=== PATIENT | female | born 2000 | race Hispanic/Latino ===

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

== ENCOUNTER 2019-02-15 01:18 | Emergency (ER) | payer BC ==
--- OUTSIDE RECORDS SUMMARY | 2019-02-15 01:20 | XMS REPORT ---
:2000 Author Organization e[employer] Care Team Providers Name Role Phone Tae Carpio Provider Role Unavailable Allergies, Adverse Reactions, Alerts Substance Reaction Event Type N.K.D.A. Info Not Available Non Drug Allergy Problems Problem Type Condition Code Onset Dates Condition Status Problem Early stage of Z34.90 Active Problem Amenorrhea N91.2 Active Assessment Fatigue, unspecified type R53.83 Active Assessment Nausea/vomiting in O21.9 Active Assessment Positive urine test Z32.01 Active Medications No Known Medications Results Name Result Date Reference Range Unit Abnormality Flag TEST URINE ----RESULTS POSITIVE [id number] Summary Purpose Archetype Mediainical[facility] Submission
--- OUTSIDE RECORDS SUMMARY | 2019-02-15 01:20 | XMS REPORT ---
:2000 Author Organization [employer] Care Team Providers Name Role Phone Jerry Chavez Provider Role Unavailable Allergies, Adverse Reactions, Alerts Substance Reaction Event Type N.K.D.A. Info Not Available Non Drug Allergy Problems Problem Type Condition Code Onset Dates Condition Status Problem Early stage of Z34.90 Active Problem Amenorrhea N91.2 Active Assessment Amenorrhea N91.2 Active Assessment Early stage of Z34.90 Active Medications No Known Medications Results No Known Results Summary Purpose eClinicalWorks Submission
--- OUTSIDE RECORDS SUMMARY | 2019-02-15 01:20 | XMS REPORT ---
:2000 Author Organization [employer] Care Team Providers Name Role Phone Jerry Chavez Provider Role Unavailable Allergies, Adverse Reactions, Alerts Substance Reaction Event Type N.K.D.A. Info Not Available Non Drug Allergy Problems Problem Type Condition Code Onset Dates Condition Status Assessment Other specified bacterial agents B96.89 Active as the cause of diseases classified elsewhere Problem Early stage of Z34.90 Active Problem Amenorrhea N91.2 Active Assessment Encounter to determine O36.80X0 Active viability of , single or unspecified fetus Assessment Acute vaginitis N76.0 Active Assessment Amenorrhea N91.2 Active Assessment Encounter for supervision of Z34.91 Active low-risk in first trimester Medications No Known Medications Results Name Result Date Reference Range Unit Abnormality Flag URINALYSIS AUTO W/O SCOPE (82853) ----NIT neg [id number] ----URO 0.2 [id number] ----PROTEIN 1+ [id number] ----pH 6.0 [id number] ----BLO trace [id number] ----GLUCOSE neg [id number] ----FLIP neg [id number] ----BILIRUBIN 1+ [id number] ----KETONES 4+ [id number] ----SPECIFIC GRAVITY 1.030 [id number] Summary Purpose eClinicalWorks Submission
--- OUTSIDE RECORDS SUMMARY | 2019-02-15 01:20 | XMS REPORT ---
:2000 Author Organization [employer] Care Team Providers Name Role Phone Tae Carpio Provider Role Unavailable Allergies, Adverse Reactions, Alerts Substance Reaction Event Type N.K.D.A. Info Not Available Non Drug Allergy Problems Problem Type Condition Code Onset Dates Condition Status Assessment Gastroenteritis and colitis, viral A08.4 Active Assessment Nausea and vomiting, intractability R11.2 Active of vomiting not specified, unspecified vomiting type Assessment Viral upper respiratory tract J06.9 Active infection Medications Medication Code Code Instructions Start End Date Status Dosage System Date Ondansetron [facility] [id number] 4 MG Orally Dec 10, Active 1 tablet on every 8 hrs PRN 2018 the tongue N/V and allow to dissolve as needed Results Name Result Date Reference Range Unit Abnormality Flag TEST URINE ----RESULTS Negative [id number] Summary Purpose eClinicalWorks Submission
[2019-02-15 03:07] LABS: Absolute Monocytes 0.6 K/uL (0.1-1.3); Absolute Neutrophil 9.1 K/uL (1.8-8.0); Basophils % 0.4 % (0-1.3); Eosinophils % 0.9 % (0-4.4); Hematocrit 32.3 % (36.0-45.0); Lymphocytes % 17.2 % (15.3-44.8); MPV 9.3 fL (7.6-11.3)
[2019-02-15 03:42] LABS: Urine Blood 2+ (NEG); Urine Glucose NEGATIVE (NEG); Urine Protein NEGATIVE (NEG); Urine Specific Gravity 1.025 (1.005-1.030)
[2019-02-15 03:47] LABS: BUN Blood Urea Nitrogen 7 mg/dL (7-18); Bicarbonate 24 mmol/L (21-32); Glucose Level 89 mg/dL (74-106); HCG, Quantitative 97606 mIU/mL (1-3); Potassium 3.9 mmol/L (3.5-5.1); Sodium Level 140 mmol/L (136-145)
[2019-02-15] MEDS ORDERED: D5 0.9 NS 1,000 ML IV ONE (04:08)
--- NOTE | 2019-02-15 05:01 | EDPHYS ---
Physician Documentation [facility] Name: Jose Ch Age: 18 yrs Sex: Female : 2000 Arrival Date: 02/15/2019 Time: 01:19 Bed 7 Private MD: Mj Carpioh ED Physician Abdirahman Perry HPI: 02/15 05:59 This 18 yrs old Female presents to ER via Ambulatory with complaints of gs Vaginal Bleeding, + Preg <12wks, Abdominal Pain. 05:59 Associated signs and symptoms: Pertinent positives: vaginal bleeding. The patient has gs not experienced similar symptoms in the past. 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 - Social history:: Smoking status: Patient/guardian denies using tobacco. - Ebola Screening: : No symptoms or risks identified at this time. ROS: 05:59 All other systems are negative. gs Exam: 05:59 Head/Face: Normocephalic, atraumatic. Eyes: Pupils equal round and reactive to light, gs extra-ocular motions intact. Lids and lashes normal. Conjunctiva and sclera are non-icteric and not injected. Cornea within normal limits. Periorbital areas with no swelling, redness, or edema. ENT: Nares patent. No nasal discharge, no septal abnormalities noted. Tympanic membranes are normal and external auditory canals are clear. Oropharynx with no redness, swelling, or masses, exudates, or evidence of obstruction, uvula midline. Mucous membranes moist. Neck: Trachea midline, no thyromegaly or masses palpated, and no cervical lymphadenopathy. Supple, full range of motion without nuchal rigidity, or vertebral point tenderness. No Meningismus. Chest/axilla: Normal chest wall appearance and motion. Nontender with no deformity. No lesions are appreciated. Cardiovascular: Regular rate and rhythm with a normal S1 and S2. No gallops, murmurs, or rubs. Normal PMI, no JVD. No pulse deficits. Respiratory: Lungs have equal breath sounds bilaterally, clear to auscultation and percussion. No rales, rhonchi or wheezes noted. No increased work of breathing, no retractions or nasal flaring. Back: No spinal tenderness. No costovertebral tenderness. Full range of motion. Skin: Warm, dry with normal turgor. Normal color with no rashes, no lesions, and no evidence of cellulitis. MS/ Extremity: Pulses equal, no cyanosis. Neurovascular intact. Full, normal range of motion. Neuro: Awake and alert, GCS 15, oriented to person, place, time, and situation. Cranial nerves II-XII grossly intact. Motor strength 5/5 in all extremities. Sensory grossly intact. Cerebellar exam normal. Normal gait. 05:59 Constitutional: The patient appears alert, awake. 05:59 Abdomen/GI: Palpation: mild abdominal tenderness, in the suprapubic area. 05:59 : Pelvic Exam: The exam is refused by the patient/guardian. The risks and consequences are understood by the patient. Vital Signs: 01:38 BP 96 / 58; Pulse 60; Resp 16; Temp 97.5; Pulse Ox 100% on R/A; Weight 57.61 kg; Height aa1 5 ft. 1 in. (154.94 cm); Pain 7/10; 02:30 BP 101 / 63; Pulse 70; Resp 16 S; Pulse Ox 100% on R/A; cc3 03:07 BP 101 / 59; Pulse 59; Resp 17 S; Pulse Ox 100% on R/A; cc3 04:47 BP 103 / 66; Pulse 62; Resp 16 S; Pulse Ox 100% on R/A; cc3 05:00 BP 101 / 66; Pulse 61; Resp 17 S; Pulse Ox 100% on R/A; cc3 01:38 Body Mass Index 24.00 (57.61 kg, 154.94 cm) aa1 MDM: 02:12 Patient medically screened. 05:59 Differential diagnosis: ectopic . Data reviewed: vital signs, nurses notes. gs Response to treatment: the patient's symptoms have markedly improved after treatment, SAYS IS NOT BLEEDING AND WANTS TO GO HOME PRIOR TO GETTING RESULTS. 02/15 02:16 Order name: Quantitative Hcg; Complete Time: 04:57 02/15 02:16 Order name: Abo/rh Typing; Complete Time: 04:57 02/15 02:16 Order name: Basic Metabolic Panel; Complete Time: 04:57 02/15 02:16 Order name: CBC with Diff; Complete Time: 03:46 02/15 03:11 Order name: Urine Dipstick--Ancillary (enter results); Complete Time: 03:46 2 02/15 03:11 Order name: Urine --Ancillary (enter results); Complete Time: 03:46 2 02/15 02:16 Order name: IV Saline Lock; Complete Time: 02:48 02/15 02:16 Order name: Labs collected and sent; Complete Time: 02:48 02/15 02:16 Order name: NPO; Complete Time: 02:19 02/15 02:16 Order name: Urine Dipstick-Ancillary (obtain specimen); Complete Time: 03:04 02/15 02:16 Order name: US Transvaginal Ob; Complete Time: 19:40 gs Administered Medications: 04:00 Drug: D5-NS 1000 ml Route: IV; Rate: bolus; Site: right antecubital; cc3 05:15 Follow up: Response: No adverse reaction; IV Status: Completed infusion; IV Intake: cc3 1000ml Point of Care Testing: Urine : 03:00 hCG Reading: Positive; cc3 Disposition: 02/15/19 05:00 Discharged to Home. Impression: Threatened . - Condition is Stable. - Discharge Instructions: Threatened Miscarriage. - Medication Reconciliation Form, Thank You Letter, Antibiotic Education, Prescription Opioid Use, Family Work Release form. - Follow up: Gina Chavez MD; When: Today; Reason: Re-evaluation by your physician. Signatures: Dispatcher [employer] Patricia Cordon RN RN aa1 Abdirahman Perry MD MD gs Cordel, Charlene cc3 Corrections: (The following items were deleted from the chart) 05:15 05:00 02/15/2019 05:00 Discharged to Home. Impression: Threatened . Condition cc3 is Stable. Forms are Medication Reconciliation Form, Thank You Letter, Antibiotic Education, Prescription Opioid Use. Follow up: Gina Chavez; When: Today; Reason: Re-evaluation by your physician.
--- NOTE | 2019-02-15 05:01 | ER ---
Nurse's Notes [facility] Name: Jose Ch Age: 18 yrs Sex: Female : 2000 Arrival Date: 02/15/2019 Time: 01:19 Bed 7 Private MD: Tae Carpio Diagnosis: Threatened Presentation: 02/15 01:36 Presenting complaint: Patient states: she is 8 weeks and started having some aa1 vaginal bleeding this evening when she went to the restroom. reports she has had an u/s already which has conformed IUP. Transition of care: patient was not received from another setting of care. Onset of symptoms was February 15, 2019. Risk Assessment: Do you want to hurt yourself or someone else? Patient reports no desire to harm self or others. Initial Sepsis Screen: Does the patient meet any 2 criteria? No. Patient's initial sepsis screen is negative. Does the patient have a suspected source of infection? No. Patient's initial sepsis screen is negative. Care prior to arrival: None. 01:36 Method Of Arrival: Ambulatory aa1 01:36 Acuity: CHYNA 3 aa1 Triage Assessment: 01:31 Pain: Complains of pain in lower abdomen. : No signs and/or symptoms were reported cc3 regarding the genitourinary system. 01:38 General: Appears in no apparent distress. comfortable, Behavior is calm, cooperative, aa1 appropriate for age. 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 - Social history:: Smoking status: Patient/guardian denies using tobacco. - Ebola Screening: : No symptoms or risks identified at this time. Screenin:31 Abuse screen: Denies threats or abuse. Denies injuries from another. Nutritional cc3 screening: No deficits noted. Tuberculosis screening: No symptoms or risk factors identified. Fall Risk Ambulatory Aid- None/Bed Rest/Nurse Assist (0 pts). Gait- Normal/Bed Rest/Wheelchair (0 pts) Mental Status- Oriented to own ability (0 pts). Assessment: 01:31 Obstetrical Assessment: General assessment: awake and alert, skin warm and dry. cc3 02:18 Reassessment: Patient appears in no apparent distress at this time. Patient and/or cc3 family updated on plan of care and expected duration. Pain level reassessed. Patient is alert, oriented x 3, equal unlabored respirations, skin warm/dry/pink. 03:12 Reassessment: Patient appears in no apparent distress at this time. Patient and/or cc3 family updated on plan of care and expected duration. Pain level reassessed. Patient is alert, oriented x 3, equal unlabored respirations, skin warm/dry/pink. 04:30 Reassessment: Patient appears in no apparent distress at this time. Patient and/or cc3 family updated on plan of care and expected duration. Pain level reassessed. Patient is alert, oriented x 3, equal unlabored respirations, skin warm/dry/pink. 05:15 Reassessment: Patient appears in no apparent distress at this time. Patient and/or cc3 family updated on plan of care and expected duration. Pain level reassessed. Patient is alert, oriented x 3, equal unlabored respirations, skin warm/dry/pink. Dr. Perry said he don't have the ultrasound result yet for the patient and the patient wants to leave so he discharge the patient home, no prescription given. IV cannula removed and patient left ER vitally stable and ambulatory with her . Vital Signs: 01:38 BP 96 / 58; Pulse 60; Resp 16; Temp 97.5; Pulse Ox 100% on R/A; Weight 57.61 kg; Height aa1 5 ft. 1 in. (154.94 cm); Pain 7/10; 02:30 BP 101 / 63; Pulse 70; Resp 16 S; Pulse Ox 100% on R/A; cc3 03:07 BP 101 / 59; Pulse 59; Resp 17 S; Pulse Ox 100% on R/A; cc3 04:47 BP 103 / 66; Pulse 62; Resp 16 S; Pulse Ox 100% on R/A; cc3 05:00 BP 101 / 66; Pulse 61; Resp 17 S; Pulse Ox 100% on R/A; cc3 01:38 Body Mass Index 24.00 (57.61 kg, 154.94 cm) aa1 ED Course: 01:19 Patient arrived in ED. es 01:20 Tae Carpio DO is Private Physician. es 01:31 Beata Nuñez is Primary Nurse. cc3 01:31 Patient has correct armband on for positive identification. Placed in gown. Bed in low cc3 position. Call light in reach. Side rails up X 1. Pulse ox on. NIBP on. 01:38 Triage completed. aa1 01:38 Arm band placed on right wrist. aa1 01:59 Abdirahman Perry MD is Attending Physician. gs 02:40 Inserted saline lock: 20 gauge in right antecubital area, using aseptic technique. cc3 Blood collected. 03:21 Patient taken to ultrasound. via wheelchair. lc3 03:42 Ultrasound completed. Patient tolerated well. Patient moved back from ultrasound. lc3 03:43 US Transvaginal Ob In Process Unspecified. EDMS 05:00 Gina Chavez MD is Referral Physician. gs 05:15 No provider procedures requiring assistance completed. IV discontinued, intact, cc3 bleeding controlled, No redness/swelling at site. Pressure dressing applied. Administered Medications: 04:00 Drug: D5-NS 1000 ml Route: IV; Rate: bolus; Site: right antecubital; cc3 05:15 Follow up: Response: No adverse reaction; IV Status: Completed infusion; IV Intake: cc3 1000ml Point of Care Testing: Urine : 03:00 hCG Reading: Positive; cc3 Intake: 05:15 IV: 1000ml; Total: 1000ml. cc3 Outcome: 05:00 Discharge ordered by MD. gs 05:15 Patient left the ED. cc3 05:15 Discharged to home ambulatory, with family. cc3 05:15 Condition: stable 05:15 Discharge instructions given to patient, family, Instructed on discharge instructions, follow up and referral plans. Demonstrated understanding of instructions, follow-up care. Signatures: Dispatcher [employer] Patricia Cordon, UGO RN aa1 Dana Gonzalez Laulita lc3 Abdirahman Perry MD MD gs Cordel, Charlene cc3
--- NOTE | 2019-02-15 12:49 | RAD REPORT ---
EXAM DESCRIPTION: US - Transvaginal OB - 02/15/2019 3:43 am CLINICAL HISTORY: The patient is 18 years old and is Female; ABD CRAMPING, TECHNIQUE: Real-time transvaginal obstetrical ultrasound of the maternal pelvis and a first trimeste r with image documentation. Transvaginal imaging was used for better evaluation of the fe tus and adnexa. COMPARISON: No relevant prior studies available. FINDINGS: GESTATION: Intrauterine gestational sac and yolk sac are present. A pole with [place] n-rump length of 2.2 cm correlating to 8 weeks 6 days is present. heart rate is 176 bpm. Echoge becky debris is present within the gestational sac. PLACENTA/AMNIOTIC FLUID: Cannot be adequately evaluated due to the early gestational age. UTERUS/CERVIX: Unremarkable. No myometrial mass. OVARIES: Unremarkable. No mass. FREE FLUID: No free fluid. IMPRESSION: 1. Single IUP at 8 weeks 6 days by CRL with heart rate of 176 bpm. 2. Echogenic debris is present within the gestational sac. This is of likely no clinical significance . However, attention on follow-up is recommended. Electronically signed by: Luma Sylvester MD 02/15/2019 5:33 AM CDT Due to temporary technical issues with the PACS/Fluency reporting system, reports are being signed by the in house radiologist as a courtesy to ensure prompt reporting. The interpreting radiologist is f ully responsible for the content of the report.
== END 2019-02-15 05:15 | disposition home or self-care (01) ==
LOC: ER 01:18
DX: O20.0 Threatened abortion (principal); Z3A.08 8 weeks gestation of pregnancy
CPT/HCPCS: 36415; 76817; 80048; 81003; 81025; 84702; 85025; 86900; 86901; 96360; 99284

== ENCOUNTER 2019-08-12 14:56 | Emergency (ER) | payer OTHER ==
--- OUTSIDE RECORDS SUMMARY | 2019-08-12 14:58 | XMS REPORT ---
:2000 Author Organization eClinicalWorks Care Team Providers Name Role Phone Jerry Chavez Provider Role Unavailable Allergies No Known Allergies Problems Problem Type Condition Code Onset Dates Condition Status Assessment Encounter for supervision of normal Z34.02 Active first in second trimester Problem Encounter for supervision of normal Z34.01 Active first in first trimester Problem Encounter for supervision of normal Z34.02 Active first in second trimester Problem Vaginal bleeding affecting early O20.8 Active Assessment Encounter for supervision of normal Z34.01 Active first in first trimester Problem Early stage of Z34.90 Active Problem Amenorrhea N91.2 Active Medications No Known Medications Results No Known Results Summary Purpose eClinicalWorks Submission
--- OUTSIDE RECORDS SUMMARY | 2019-08-12 14:58 | XMS REPORT ---
[...] Unit Abnormality Flag URINALYSIS AUTO W/O SCOPE (13744) ----NIT neg [id number] ----URO 0.2 [id number] ----PROTEIN 1+ [id number] ----pH 6.0 [id number] ----BLO trace [id number] ----GLUCOSE neg [id number] ----FLIP neg [id number] ----BILIRUBIN 1+ [id number] ----KETONES 4+ [id number] ----SPECIFIC GRAVITY 1.030 [id number] Summary Purpose eClinicalWorks Submission
--- OUTSIDE RECORDS SUMMARY | 2019-08-12 14:58 | XMS REPORT ---
:2000 Author Organization eClinicalWorks Care Team Providers Name Role Phone Jerry Chavez Provider Role Unavailable Allergies No Known Allergies Problems Problem Type Condition Code Onset Dates Condition Status Problem Encounter for supervision of normal Z34.01 Active first in first trimester Problem Encounter for supervision of normal Z34.02 Active first in second trimester Problem Vaginal bleeding affecting early O20.8 Active Assessment Encounter for supervision of normal Z34.02 Active first in second trimester Problem Early stage of Z34.90 Active Problem Amenorrhea N91.2 Active Medications No Known Medications Results No Known Results Summary Purpose eClinicalWorks Submission
--- OUTSIDE RECORDS SUMMARY | 2019-08-12 14:58 | XMS REPORT ---
[...] End Date Status Dosage System Date Ondansetron [facility] [id number] 4 MG Orally Dec 10, Active 1 tablet on every 8 hrs PRN 2018 the tongue N/V and allow to dissolve as needed Results Name Result Date Reference Range Unit Abnormality Flag TEST URINE ----RESULTS Negative [id number] Summary Purpose eClinicalWorks Submission
--- OUTSIDE RECORDS SUMMARY | 2019-08-12 14:58 | XMS REPORT ---
[...] Unit Abnormality Flag TEST URINE ----RESULTS POSITIVE [id number] Summary Purpose [employer] Submission
--- OUTSIDE RECORDS SUMMARY | 2019-08-12 14:58 | XMS REPORT ---
:2000 Author Organization eClinicalWorks Care Team Providers Name Role Phone Jerry Chavez Provider Role Unavailable Allergies No Known Allergies Problems Problem Type Condition Code Onset Dates Condition Status Problem Amenorrhea N91.2 Active Problem Early stage of Z34.90 Active Problem Vaginal bleeding affecting early O20.8 Active Assessment Vaginal bleeding affecting early O20.8 Active Medications No Known Medications Results No Known Results Summary Purpose [employer] Submission
--- OUTSIDE RECORDS SUMMARY | 2019-08-12 14:58 | XMS REPORT ---
[...] Problem Vaginal bleeding affecting early O20.8 Active Problem Early stage of Z34.90 Active Problem Amenorrhea N91.2 Active Medications No Known Medications Results No Known Results Summary Purpose eClinicalWorks Submission
[2019-08-12] MEDS ORDERED: LIDOCAINE 1% MPF 5 ML VIAL ONE (15:28)
[2019-08-12] MEDS ORDERED: Tdap (Diph,Pertuss(Acell),Tet Vac) 0.5 ML SYR IMVAC ONE (16:00)
[2019-08-12] MEDS ORDERED: ACETAMINOPHEN 500 MG TAB ONE (16:22)
--- NOTE | 2019-08-12 16:53 | ER ---
Nurse's Notes [facility] Name: Jose Ch Age: 18 yrs Sex: Female : 2000 Arrival Date: 08/12/2019 Time: 14:57 Bed 23 Private MD: Tae Carpio Diagnosis: Laceration without foreign body, left lower leg Presentation: 08/12 15:06 Presenting complaint: Patient states: i ran into a stainless steel few minutes ago mg2 while we are preparing for my baby shower. i am 34 weeks . denies trauma to the belly. sustained laceration approx. 1.5 inches long in the left lower leg. bleeding controlled. Transition of care: patient was not received from another setting of care. Complicating Factors: hit the stainless steel. Onset of symptoms was August 12, 2019. Risk Assessment: Do you want to hurt yourself or someone else? Patient reports no desire to harm self or others. Initial Sepsis Screen: Does the patient meet any 2 criteria? No. Patient's initial sepsis screen is negative. Does the patient have a suspected source of infection? No. Patient's initial sepsis screen is negative. Care prior to arrival: None. 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 - Social history:: Smoking status: Patient/guardian denies using tobacco, Patient/guardian denies using alcohol, street drugs, IV drugs. - Ebola Screening: : No symptoms or risks identified at this time. Screenin:23 Abuse screen: Denies threats or abuse. Denies injuries from another. Nutritional mg2 screening: No deficits noted. Tuberculosis screening: No symptoms or risk factors identified. Fall Risk Gait- Weak (10 pts.). Assessment: 16:25 General: Appears in no apparent distress. comfortable, Behavior is calm, cooperative. mg2 Pain: Complains of pain in left leg Pain does not radiate. Pain currently is 5 out of 10 on a pain scale. Quality of pain is described as aching, Pain began gradually. Neuro: Level of Consciousness is awake, alert, obeys commands, Oriented to person, place, time, situation. Cardiovascular: Capillary refill < 3 seconds Patient's skin is warm and dry. Respiratory: Airway is patent Respiratory effort is even, unlabored, Respiratory pattern is regular, symmetrical. GI: No signs and/or symptoms were reported involving the gastrointestinal system. : No signs and/or symptoms were reported regarding the genitourinary system. EENT: No signs and/or symptoms were reported regarding the EENT system. Derm: Wound noted left leg. Musculoskeletal: Circulation, motion, and sensation intact. Capillary refill < 3 seconds. Injury Description: Laceration sustained to left leg is clean, 2.6 to 7.5 cm long, not bleeding, was sustained 30-60 minutes ago. is bleeding a small amount. Vital Signs: 15:09 BP 132 / 94; Pulse 101; Resp 18; Temp 98.3; Pulse Ox 100% on R/A; Weight 67.13 kg; mg2 Height 5 ft. 1 in. (154.94 cm); Pain 10/10; 16:28 BP 128 / 89; Pulse 95; Resp 18; Pulse Ox 100% on R/A; mg2 17:35 BP 122 / 78; Pulse 90; Resp 18; Temp 98; Pulse Ox 100% on R/A; mg2 15:09 Body Mass Index 27.96 (67.13 kg, 154.94 cm) mg2 ED Course: 14:57 Patient arrived in ED. mr 14:58 Tae Carpio DO is Private Physician. mr 15:02 Carlos Corrales, UGO is Primary Nurse. mg2 15:08 Flip Del Valle NP is PHCP. pm1 15:08 Adal Toledo MD is Attending Physician. pm1 15:09 Triage completed. mg2 15:10 Arm band placed on. mg2 16:24 Assist provider with laceration repair on left leg that was between 2.6 to 7.5 cm using mg2 7 stitches made under local anesthesia. Set up tray. Performed by Flip Del Valle SALES AND RETAIL MANAGEMENT RECRUITER Dressed with 4X4s, Neosporin, Patient tolerated well. Patient did not have IV access during this emergency room visit. 16:28 Patient has correct armband on for positive identification. mg2 16:45 Ankle Left 3 View XRAY In Process Unspecified. EDMS 17:30 Crutch training done. Amilcar wrap to left ankle. mg2 Administered Medications: 15:40 Drug: Lidocaine (1 %) 5 ml {Note: given by the provider.} Volume: 5 ml; Route: mg2 Infiltration; 15:55 Follow up: Response: No adverse reaction mg2 15:53 Drug: Diph,Pertus(Acel),Tetanus Vac (PF) 0.5 ml {Color Worker: [employer]. Exp: mg2 04/03/2021. Lot #: [id number]. } Route: IM; Site: right deltoid; 15:54 Follow up: Response: No adverse reaction; Medication administered at discharge. mg2 16:23 Drug: Tylenol 500 mg Route: PO; mg2 Outcome: 16:52 Discharge ordered by MD. pm1 17:36 Discharged to home ambulatory, with crutches, with family. mg2 17:36 Condition: stable 17:36 Discharge instructions given to patient, family, friend, Instructed on discharge instructions, follow up and referral plans. crutch walking, Demonstrated understanding of instructions, follow-up care, wound care, crutch walking. 17:36 Patient left the ED. mg2 Signatures: Dispatcher [employer] Laurie Hawk Patrick, SALES AND RETAIL MANAGEMENT RECRUITER SALES AND RETAIL MANAGEMENT RECRUITER pm1 Carlos Corrales, RN RN mg2
--- NOTE | 2019-08-12 16:53 | EDPHYS ---
Physician Documentation [facility] Name: Jose Ch Age: 18 yrs Sex: Female : 2000 Arrival Date: 08/12/2019 Time: 14:57 Bed 23 Private MD: Mj Carpioh ED Physician Adal Toledo HPI: 08/12 15:21 This 18 yrs old Female presents to ER via Wheelchair with complaints of 34 wks pm1 , Laceration To Leg. 15:21 The patient presents with a laceration, 4 cm(s). The complaints affect the left mina. pm1 Context: The problem was sustained at a restaurant, resulted from ran into a cart and hit her left mina against it resulting in laceration and pain, the patient can partially bear weight, the patient is able to ambulate, Problem is a result from a previous injury: No. Onset: The symptoms/episode began/occurred just prior to arrival. Modifying factors: The symptoms are alleviated by remaining still, the symptoms are aggravated by weight bearing. Associated signs and symptoms: Pertinent negatives calf tenderness, numbness, swelling, tingling, weakness. Treatment prior to arrival includes: no previous treatment. Severity of symptoms: in the emergency department the symptoms are unchanged. The patient has not experienced similar symptoms in the past. The patient has not recently seen a physician. 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 - Social history:: Smoking status: Patient/guardian denies using tobacco, Patient/guardian denies using alcohol, street drugs, IV drugs. - Ebola Screening: : No symptoms or risks identified at this time. ROS: 15:21 Constitutional: Negative for fever, chills, and weight loss, Eyes: Negative for injury, pm1 pain, redness, and discharge, ENT: Negative for injury, pain, and discharge, Neck: Negative for injury, pain, and swelling, Cardiovascular: Negative for chest pain, palpitations, and edema, Respiratory: Negative for shortness of breath, cough, wheezing, and pleuritic chest pain, Abdomen/GI: Negative for abdominal pain, nausea, vomiting, diarrhea, and constipation, Back: Negative for injury and pain. 15:21 MS/extremity: Positive for laceration, pain, of the left mina, Negative for decreased range of motion, deformity. 15:21 Skin: Positive for laceration(s), of the left mina. Exam: 15:21 Constitutional: This is a well developed, well nourished patient who is awake, alert, pm1 and in no acute distress. Head/Face: Normocephalic, atraumatic. Eyes: Pupils equal round and reactive to light, extra-ocular motions intact. Lids and lashes normal. Conjunctiva and sclera are non-icteric and not injected. Cornea within normal limits. Periorbital areas with no swelling, redness, or edema. Neck: Trachea midline, no thyromegaly or masses palpated, and no cervical lymphadenopathy. Supple, full range of motion without nuchal rigidity, or vertebral point tenderness. No Meningismus. Chest/axilla: Normal chest wall appearance and motion. Nontender with no deformity. No lesions are appreciated. Cardiovascular: Regular rate and rhythm with a normal S1 and S2. No gallops, murmurs, or rubs. Normal PMI, no JVD. No pulse deficits. Respiratory: Lungs have equal breath sounds bilaterally, clear to auscultation and percussion. No rales, rhonchi or wheezes noted. No increased work of breathing, no retractions or nasal flaring. 15:21 Back: No spinal tenderness. No costovertebral tenderness. Full range of motion. 15:21 Abdomen/GI: Inspection: gravid appearance, is noted, Palpation: abdomen is soft and non-tender. 15:21 Musculoskeletal/extremity: Extremities: grossly normal except: noted in the left mina: There is no evidence of decreased ROM, to left ankle but reports pain to area of laceration with moving left ankle , Circulation is intact in all extremities. 15:21 Skin: Appearance: normal except for affected area, injury, laceration(s), the wound is approximately 4 cm(s), with a depth of 1 cm(s), of the left mina, that can be described as clean, no foreign body, irregular, without bleeding. Vital Signs: 15:09 BP 132 / 94; Pulse 101; Resp 18; Temp 98.3; Pulse Ox 100% on R/A; Weight 67.13 kg; mg2 Height 5 ft. 1 in. (154.94 cm); Pain 10/10; 16:28 BP 128 / 89; Pulse 95; Resp 18; Pulse Ox 100% on R/A; mg2 17:35 BP 122 / 78; Pulse 90; Resp 18; Temp 98; Pulse Ox 100% on R/A; mg2 15:09 Body Mass Index 27.96 (67.13 kg, 154.94 cm) mg2 Laceration: 16:21 Wound Repair of 4cm ( 1.6in ) subcutaneous laceration to left mina. Irregularly pm1 shaped.. Distal neuro/vascular/tendon intact. Anesthesia: Local anesthetic administered with 5 mls of 1% lidocaine. Wound prep: Extensive cleansing with hibiclenz by nurse, Wound irrigation with saline by me, Wound explored extensively, Copious irrigation. Skin closed with 7 4-0 Prolene using simple sutures and sterile technique. Dressed with Neosporin, 4x4's, non-adherent dressing. Patient tolerated well. MDM: 15:08 Patient medically screened. pm1 16:21 Data reviewed: vital signs. Data interpreted: Pulse oximetry: on room air is 100 %. pm1 Interpretation: normal. 16:51 Counseling: I had a detailed discussion with the patient and/or guardian regarding: the pm1 historical points, exam findings, and any diagnostic results supporting the discharge/admit diagnosis, radiology results, the need for outpatient follow up, to return to the emergency department if symptoms worsen or persist or if there are any questions or concerns that arise at home. 17:30 ED course: Mother witnessed injury. Patient hit leg against the cart and was able to pm1 walk to a chair without difficulty after the injury. Patient did not recall twisting her ankle but based on mother's recollection of event it is not likely. Patient's pain is due to the laceration and contusion. 08/12 15:56 Order name: Ankle Left 3 View XRAY; Complete Time: 17:28 pm1 08/12 15:21 Order name: Prolene, Sutures; Complete Time: 15:28 pm1 08/12 15:21 Order name: Dressing - Wound; Complete Time: 15:28 pm1 08/12 15:21 Order name: Gloves, Sterile; Complete Time: 15:28 pm1 08/12 15:21 Order name: Setup Suture Tray; Complete Time: 15:28 pm1 Administered Medications: 15:40 Drug: Lidocaine (1 %) 5 ml {Note: given by the provider.} Volume: 5 ml; Route: mg2 Infiltration; 15:55 Follow up: Response: No adverse reaction mg2 15:53 Drug: Diph,Pertus(Acel),Tetanus Vac (PF) 0.5 ml {Director Trust: [employer]. Exp: mg2 04/03/2021. Lot #: [id number]. } Route: IM; Site: right deltoid; 15:54 Follow up: Response: No adverse reaction; Medication administered at discharge. mg2 16:23 Drug: Tylenol 500 mg Route: PO; mg2 Disposition: 18:23 Co-signature as Attending Physician, Adal Toledo MD. id2 Disposition: 08/12/19 16:52 Discharged to Home. Impression: Laceration without foreign body, left lower leg. - Condition is Stable. - Discharge Instructions: Crutch Use, Laceration Care, Adult. - Medication Reconciliation Form, Thank You Letter, Antibiotic Education, Prescription Opioid Use form. - Follow up: Emergency Department; When: As needed; Reason: Worsening of condition. Follow up: Private Physician; When: 10 - 14 days; Reason: Recheck today's complaints, Continuance of care, Staple/Suture removal, Re-evaluation by your physician. - Problem is new. - Symptoms have improved. Signatures: Dispatcher [employer] EDAZ Flip Del Valle NP SIGNAL MECHANIC pm1 Adal Toledo MD MD id2 Carlos Corrales RN RN mg2 Corrections: (The following items were deleted from the chart) 17:36 16:52 08/12/2019 16:52 Discharged to Home. Impression: Laceration without foreign body, mg2 left lower leg. Condition is Stable. Forms are Medication Reconciliation Form, Thank You Letter, Antibiotic Education, Prescription Opioid Use. Follow up: Emergency Department; When: As needed; Reason: Worsening of condition. Follow up: Private Physician; When: 10 - 14 days; Reason: Recheck today's complaints, Continuance of care, Staple/Suture removal, Re-evaluation by your physician. Problem is new. Symptoms have improved. pm1
--- NOTE | 2019-08-12 17:03 | RAD REPORT ---
EXAM DESCRIPTION: RAD - Ankle Left 3 View - 08/12/2019 4:42 pm CLINICAL HISTORY: Left ankle trauma, laceration COMPARISON: None. FINDINGS: No fracture, dislocation or periosteal reaction. No joint effusion seen. No joint space na rrowing. No significant soft tissue injury evident. No retained foreign body. There is some contusion and edema change along the anterior and lateral ankle. IMPRESSION: No bone or joint abnormality. No foreign body in the soft tissues.
[2019-08-12 17:59] VITALS: O2SAT 100
[2019-08-12 18:03] VITALS: BP 122/78; TEMP 98
== END 2019-08-12 17:36 | disposition home or self-care (01) ==
LOC: ER 14:56
PROC: 0JQP0ZZ Repair Left Lower Leg Subcutaneous Tissue and Fascia, Open Approach (ICD-10-PCS; principal; 2019-08-12)
DX: O26.893 Other specified pregnancy related conditions, third trimester (principal); W45.8XXA Other foreign body or object entering through skin, initial encounter; Y93.89 Activity, other specified; Y92.89 Other specified places as the place of occurrence of the external cause; Z23 Encounter for immunization; Z3A.34 34 weeks gestation of pregnancy
CPT/HCPCS: 90471; 90715; 99284

== ENCOUNTER 2019-08-27 10:23 | Emergency (ER) | payer OTHER ==
--- NOTE | 2019-08-27 10:46 | EDPHYS ---
Physician Documentation [facility] Name: Jose Ch Age: 18 yrs Sex: Female : 2000 Arrival Date: 08/27/2019 Time: 10:26 Bed 11 Private MD: ED Physician Tu Fermin HPI: 08/27 10:43 This 18 yrs old Female presents to ER via Unassigned with complaints of Suture jr8 Removal. 10:43 The patient has sutures on the left mina. Sutures/clovis progress: The patient has no jr8 c/o's. The wound is well-healing with no redness, swelling, discharge, or dehiscence reported. Pt with well healed incision to left distal mina. 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 - Social history:: Smoking status: Patient/guardian denies using tobacco. - Ebola Screening: : Patient negative for fever greater than or equal to 101.5 degrees Fahrenheit, and additional compatible Ebola Virus Disease symptoms Patient denies exposure to infectious person Patient denies travel to an Ebola-affected area in the 21 days before illness onset No symptoms or risks identified at this time. ROS: 10:43 Constitutional: Negative for fever, chills, and weight loss, Eyes: Negative for injury, jr8 pain, redness, and discharge, ENT: Negative for injury, pain, and discharge, Neck: Negative for injury, pain, and swelling, Cardiovascular: Negative for chest pain, palpitations, and edema, Respiratory: Negative for shortness of breath, cough, wheezing, and pleuritic chest pain, Abdomen/GI: Negative for abdominal pain, nausea, vomiting, diarrhea, and constipation, MS/Extremity: Negative for injury and deformity, Skin: Negative for injury, rash, and discoloration, Neuro: Negative for headache, weakness, numbness, tingling, and seizure. Exam: 10:43 Constitutional: This is a well developed, well nourished patient who is awake, alert, jr8 and in no acute distress. Cardiovascular: Regular rate and rhythm with a normal S1 and S2. No gallops, murmurs, or rubs. Normal PMI, no JVD. No pulse deficits. Respiratory: Lungs have equal breath sounds bilaterally, clear to auscultation and percussion. No rales, rhonchi or wheezes noted. No increased work of breathing, no retractions or nasal flaring. Skin: Warm, dry with normal turgor. Normal color with no rashes, no lesions, and no evidence of cellulitis. MS/ Extremity: Pulses equal, no cyanosis. Neurovascular intact. Full, normal range of motion. Vital Signs: 10:35 BP 124 / 74; Pulse 74; Resp 16; Temp 98.2; Pulse Ox 100% on R/A; Pain 0/10; iw Procedures: 10:45 Suture/Staple removal: Removed 6 sutures, from left mina, site appears well healed, jr8 Patient tolerated well. MDM: 10:32 Patient medically screened. jr8 10:45 Data reviewed: vital signs, nurses notes. Counseling: I had a detailed discussion with jr8 the patient and/or guardian regarding: the historical points, exam findings, and any diagnostic results supporting the discharge/admit diagnosis. Administered Medications: No medications were administered Disposition: 16:22 Co-signature as Attending Physician, Tu Fermin MD I agree with the assessment and kdr plan of care. Disposition: 08/27/19 10:46 Discharged to Home. Impression: Encounter for removal of sutures. - Condition is Stable. - Discharge Instructions: Suture Removal, Care After, Incision Care, Adult. - Medication Reconciliation Form, Thank You Letter form. - Follow up: Private Physician; When: As needed. - Problem is an ongoing problem. - Symptoms have improved. Signatures: Tu Fermin MD MD kdr Isha Diego RN RN iw Lance Castellano PA PA jr8 Corrections: (The following items were deleted from the chart) 10:51 10:46 08/27/2019 10:46 Discharged to Home. Impression: Encounter for removal of iw sutures. Condition is Stable. Forms are Medication Reconciliation Form, Thank You Letter, Antibiotic Education, Prescription Opioid Use. Follow up: Private Physician; When: As needed. Problem is an ongoing problem. Symptoms have improved. jr8
--- NOTE | 2019-08-27 10:51 | ER ---
Nurse's Notes [facility] Name: Jose Ch Age: 18 yrs Sex: Female : 2000 Arrival Date: 08/27/2019 Time: 10:26 Bed 11 Private MD: Diagnosis: Encounter for removal of sutures Presentation: 08/27 10:30 Presenting complaint: Patient states: needs sutures removed from left mina. Transition iw of care: patient was not received from another setting of care. Onset of symptoms was August 27, 2019. Risk Assessment: Do you want to hurt yourself or someone else? Patient reports no desire to harm self or others. Initial Sepsis Screen: Does the patient meet any 2 criteria? No. Patient's initial sepsis screen is negative. Does the patient have a suspected source of infection? No. Patient's initial sepsis screen is negative. Care prior to arrival: None. 10:30 Method Of Arrival: Ambulatory iw 10:30 Acuity: CHYNA 5 iw Triage Assessment: 10:40 General: Appears in no apparent distress. Behavior is calm. 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 - Social history:: Smoking status: Patient/guardian denies using tobacco. - Ebola Screening: : Patient negative for fever greater than or equal to 101.5 degrees Fahrenheit, and additional compatible Ebola Virus Disease symptoms Patient denies exposure to infectious person Patient denies travel to an Ebola-affected area in the 21 days before illness onset No symptoms or risks identified at this time. Screenin:45 Abuse screen: Denies threats or abuse. Denies injuries from another. Nutritional iw screening: No deficits noted. Tuberculosis screening: No symptoms or risk factors identified. Fall Risk None identified. Assessment: 10:40 General: Appears Behavior is calm, cooperative. Pain: Complains of pain in left mina. iw Neuro: Level of Consciousness is awake, alert, obeys commands, Oriented to person, place, time, situation. Cardiovascular: Patient's skin is warm and dry. Respiratory: Respiratory effort is even, unlabored. Derm: Skin is intact, is healthy with good turgor. Vital Signs: 10:35 BP 124 / 74; Pulse 74; Resp 16; Temp 98.2; Pulse Ox 100% on R/A; Pain 0/10; iw ED Course: 10:26 Patient arrived in ED. mr 10:31 Lance Castellano PA is PHCP. jr8 10:31 Tu Fermin MD is Attending Physician. jr8 10:40 Arm band placed on. iw 10:45 Patient has correct armband on for positive identification. iw 10:49 Isha Diego, RN is Primary Nurse. iw 10:49 No provider procedures requiring assistance completed. Patient did not have IV access iw during this emergency room visit. 10:50 Triage completed. iw Administered Medications: No medications were administered Outcome: 10:46 Discharge ordered by . jr8 10:50 Discharged to home ambulatory. iw 10:50 Condition: good 10:50 Discharge instructions given to patient, Instructed on discharge instructions, follow up and referral plans. Demonstrated understanding of instructions, follow-up care. 10:51 Patient left the ED. iw Signatures: Laurie Aguilar mr Isha Diego, RN RN iw Lance Castellano PA PA jr8
[2019-08-27 11:03] VITALS: BP 124/74; TEMP 98.2; O2SAT 100
== END 2019-08-27 10:51 | disposition home or self-care (01) ==
LOC: ER 10:23
DX: Z48.02 Encounter for removal of sutures (principal)
CPT/HCPCS: 99281

== ENCOUNTER 2019-09-07 02:07 | Inpatient (IN) | payer OTHER ==
[2019-09-07] MEDS ORDERED: BUTORPHANOL 1 MG/ML INJ IV PRN (02:54)
[2019-09-07] MEDS ORDERED: MEPERIDINE HCL 25 MG/0.5 ML IV PRN (02:54)
[2019-09-07] MEDS ORDERED: MIDAZOLAM HCL 2 MG/2 ML INJ IV PRN (02:54)
[2019-09-07] MEDS ORDERED: PROMETHAZINE 25 MG/ML VIAL IM PRN (02:54)
[2019-09-07] MEDS ORDERED: Ringers Lactate 1,000 ML IV PRN (02:54)
[2019-09-07] MEDS ORDERED: METHYLERGONOVINE 0.2MG/ML AMP IM PRN (02:54)
[2019-09-07] MEDS ORDERED: Ringers Lactate 1,000 ML IV SCH (03:00)
[2019-09-07 03:51] LABS: Urine Appearance CLOUDY; Urine Bilirubin NEGATIVE (NEG); Urine Blood 2+ (NEG); Urine Color YELLOW; Urine Glucose NEGATIVE (NEG); Urine Protein TRACE (NEG); Urine Urobilinogen 0.2 mg/dL (0.2-1.0); Urine pH 6.5 (5.0-7.0)
[2019-09-07 03:52] VITALS: BMI 28.7
[2019-09-07 03:53] LABS: Urine Microscopic Reflex ORDER UMIC
[2019-09-07 03:56] LABS: Absolute Lymphocytes (CBC) 1.5 K/uL (0.7-4.9); Basophils % 0.2 % (0-1.3); Hematocrit 35.8 % (36.0-45.0); Lymphocytes % 10.6 % (15.3-44.8); MPV 10.2 fL (7.6-11.3); RBC Red Blood Cell Count 4.06 M/uL (3.86-4.86)
[2019-09-07 04:21] LABS: Blood Morphology Comment NOTED (NOT SEEN); Burr Cells 2+; Platelet Estimate ADEQ
[2019-09-07 04:25] LABS: Urine Amorphous Sediment 3+ /HPF (NONE SEEN); Urine Bacteria <20 /HPF (<20); Urine Culture Reflex Order NOT NEEDED; Urine RBC NONE SEEN /HPF (NONE SEEN)
[2019-09-07] MEDS ORDERED: CARBOPROST TROME 250 MCG/ML IM ONE (06:12)
[2019-09-07] MEDS ORDERED: LIDOCAINE 1% 20 ML MDV ONE (06:13)
[2019-09-07] MEDS ORDERED: OXYTOCIN/LR 20 UNIT/1,000 ML BAG IV ONE (06:36)
[2019-09-07] MEDS ORDERED: DOCUSATE NA/SENNA CONC 1 TAB PO PRN ×2 (08:32→08:35)
[2019-09-07] MEDS ORDERED: ACETAMINOPHEN 500 MG TAB PO PRN ×2 (08:32→08:35)
[2019-09-07] MEDS ORDERED: DIPHENHYDRAMINE 25 MG TAB/CAP PO PRN ×2 (08:32→08:35)
[2019-09-07] MEDS ORDERED: BISACODYL 10 MG RECTAL SUPP RECT PRN ×2 (08:32→08:35)
[2019-09-07] MEDS ORDERED: Oxycodone HCl/Acetaminophen 1 TAB TAB PO PRN ×3 (08:32→08:35)
[2019-09-07] MEDS ORDERED: IBUPROFEN 200 MG TAB PO PRN (08:35)
[2019-09-07] MEDS ORDERED: OXYTOCIN/LR 20 UNIT/1,000 ML BAG IV SCH ×2 (09:00)
[2019-09-07] MEDS: IBUPROFEN 200 MG TAB PO PRN ×2 (12:00→23:55)
--- NOTE | 2019-09-07 12:32 | PREOPHP ---
Date of Admission: 09/07/2019 This 19-year-old primigravida, at 38 weeks 4 days, came in, in active labor. Has progressed now to a pproximately 8 cm, 100% effaced, vertex, +1 station. Rupture of membranes, clear fluid. Patient has had Stadol 1 time otherwise using Lamaze breathing techniques and intends to go natural the rest of the way up. Full labor talk given. The patient is in good control at this point. Anticipate delive ry relatively soon. SHANIKA/TRAY Voice ID: [id number]
--- NOTE | 2019-09-07 12:32 | PN ---
Patient is not complete in pushing. The baby is at +1, almost +2 station. No change in vital signs. Everything looks good. ERNIEC/MODTien Voice ID: [id number] Report ID: [id number]
--- NOTE | 2019-09-07 20:14 | OP ---
Surgeon: Oli Valente MD Description Of Procedure: This 19-year-old primigravida, 38 weeks 4 days, came in in spontaneous lab or. Had 1 dose of Stadol during her labor, otherwise used Lamaze breathing technique. Second stage of 20 to 30 minutes. Spontaneous vaginal delivery of an estimated 6 pounds female, Apgars 9 and 9. No episiotomy, but 2 small first-degree lacerations, both sutured with 2-0 chromic running locked sti tches, one at the posterior fourchette on the left and the other one on the right labia minora area. Schultze delivery of the placenta, which was inspected and noted to be intact and normal. Less than 350 mL blood loss. Patient is Rh positive, immune to Rubella. Negative beta strep screen. Tolerat ed all procedures well. Final Diagnoses: Term intrauterine at 38 weeks 4 days, spontaneous vaginal delivery. SHANIKA/TRAY Voice ID: [id number] Report ID: [id number]
[2019-09-07 20:38] LABS: RPR (Rapid Plasma Reagin) NON-REACT (NON-REACT)
[2019-09-08 08:15] VITALS: BP 108/78; TEMP 98.7
--- NOTE | 2019-09-08 20:42 | DS ---
Date of Discharge: 09/08/2019 A 19-year-old primigravida, 38 weeks 4 days, came in in active labor, delivered a 5 pounds, 8 ounce f emale. Apgars 9 and 9. Two first-degree lacerations, sutured with 2-0 chromic under local infiltrat ion. Schultze delivery of the placenta, which inspected and noted to be intact and normal. Less nikia n 350 mL blood loss. Rh positive, immune to Rubella. Negative beta strep screen. ; afebr ile, ambulating and voiding. Lochia is normal. She requests no analgesics on dismissal. We will ta alma delia Figueroa at home. She is to report any temperature elevation of 100 degrees or greater, severe pain , heavy bleeding, or any other type of abnormalities. She has had her Tdap immunization. Rubella st atus is being evaluated and if there is any doubt we will offer immunization before she is dismissed. Final Diagnoses: Term intrauterine at 38 weeks 4 days, spontaneous vaginal delivery, Rubel la immune. SHANIKA/TRAY Voice ID: [id number] Report ID: [id number]
[2019-09-11 02:57] LABS: HBsAG Nonreactive (Nonreactive)
== END 2019-09-08 11:05 | disposition home or self-care (01) | DRG 807 ==
LOC: L&D 02:07 → 2ND-WC 03:01
PROVIDERS: ADMIT Specialist; ATTEND Specialist
PROC: 10E0XZZ Delivery of Products of Conception, External Approach (ICD-10-PCS; principal; 2019-09-07)
PROC: 0HQ9XZZ Repair Perineum Skin, External Approach (ICD-10-PCS; 2019-09-07)
DX: O70.0 First degree perineal laceration during delivery (principal); Z37.0 Single live birth; Z3A.38 38 weeks gestation of pregnancy
CPT/HCPCS: 36415; 81003; 81015; 85025; 86592; 86901; 87340; 99218; J0595; J2210; J2550; J2590; J7120